=== PATIENT | female | born 1975 | race American Indian/Alaskan Native ===

== ENCOUNTER 2018-03-27 07:32 | Inpatient (IN) | payer SELFPAY ==
--- NOTE | 2018-03-27 04:27 | Emergency Department Report ---
ED Chest Pain HPI - General Chief Complaint: Chest Pain Stated Complaint: CHEST PAIN Time Seen by Provider: 03/27/18 04:27 Source: patient, EMS Mode of arrival: Stretcher Limitations: No Limitations - History of Present Illness Initial Comments: Patient present to the emergency room with chest pain which started suddenly this morning while she was at rest. She was given aspirin by EMS prior to arrival. Patient also says she took one sublingual nitroglycerin at home. Patient's chest pain is substernal and nonradiating. MD Complaint: chest pain -: Sudden, This morning Onset: during rest Pain Location: substernal Pain Radiation: none Severity: severe Severity scale (0 -10): 10 Quality: heaviness, pressure Consistency: constant Improves With: nothing Worsens With: nothing re: nausea. denies: vomting, diaphoresis, dyspnea Treatments Prior to Arrival: aspirin Aspirin use within the Past 7 Days: (0) No - Related Data On Oral Contraceptives: No Home Medications Medication Instructions Recorded Confirmed Last Taken cloNIDine [Catapres] 0.3 mg PO BID 02/20/13 02/20/13 03/31/13 23:00 metFORMIN [Glucophage] 500 mg PO BID 02/20/13 02/20/13 03/31/13 23:00 Previous Rx's Medication Instructions Recorded Last Taken Type Clindamycin [Clindamycin CAP] 150 mg PO QID #30 capsule 04/01/13 Unknown Rx Fluconazole [Diflucan] 150 mg PO QDAY #7 tablet 04/01/13 Unknown Rx HYDROcodone/APAP 5-325 [[place] 1 each PO Q6HR PRN #20 tablet 04/01/13 Unknown Rx 5/325 mg] Lisinopril/Hydrochlorothiazide 1 tab PO QDAY #30 tablet 04/01/13 Unknown Rx [Zestoretic 20-12.5 mg] Ciprofloxacin HCl [Ciprofloxacin 500 mg PO Q12H #20 tab 08/24/15 Unknown Rx TAB] Clotrimazole [Clotrimazole 3] 21 gm VG QDAY #1 cream.appl 08/24/15 Unknown Rx HYDROcodone/APAP 10-325 [[place] 1 each PO Q6HR PRN #15 tablet 08/24/15 Unknown Rx 10-325 mg TAB] cloNIDine [Catapres] 0.2 mg PO BID #60 tablet 03/23/16 Unknown Rx metFORMIN [Glucophage] 500 mg PO BID #60 tablet 08/24/15 Unknown Rx metroNIDAZOLE [Flagyl] 500 mg PO Q8HR #30 tablet 08/24/15 Unknown Rx Allergies Allergy/AdvReac Type Severity Reaction Status Date / Time ketorolac tromethamine Allergy Hives Verified 08/24/15 14:31 [From Toradol] Heart Score - HEART Score History: Highly suspicious EKG: Significant ST-depression Age: < 45 Risk factors: 1-2 risk factors Troponin: < normal limit HEART Score: 5 - Critical Actions Critical Actions: 4-6 pts:12-16.6% risk of adverse cardiac event. Should be admitted ED Review of Systems ROS: Stated complaint: CHEST PAIN Other details as noted in HPI Comment: All other systems reviewed and negative Constitutional: denies: chills, fever Eyes: denies: eye pain, eye discharge, vision change ENT: denies: ear pain, throat pain Respiratory: denies: cough, shortness of breath, wheezing Cardiovascular: chest pain. denies: palpitations Endocrine: no symptoms reported Gastrointestinal: denies: abdominal pain, nausea, diarrhea Genitourinary: denies: urgency, dysuria, discharge Musculoskeletal: denies: back pain, joint swelling, arthralgia Skin: denies: rash, lesions Neurological: denies: headache, weakness, paresthesias Psychiatric: denies: anxiety, depression Hematological/Lymphatic: denies: easy bleeding, easy bruising ED Past Medical Hx - Past Medical History Hx Hypertension: Yes Hx Diabetes: Yes Hx Kidney Stones: Yes Hx Asthma: Yes - Surgical History Hx Breast Surgery: Yes (breast reduction) - Social History Smoking Status: Current Every Day Smoker Substance Use Type: None - Medications Home Medications: Home Medications Medication Instructions Recorded Confirmed Last Taken Type cloNIDine [Catapres] 0.3 mg PO BID 02/20/13 02/20/13 03/31/13 23:00 History metFORMIN [Glucophage] 500 mg PO BID 02/20/13 02/20/13 03/31/13 23:00 History Clindamycin [Clindamycin CAP] 150 mg PO QID #30 capsule 04/01/13 Unknown Rx Fluconazole [Diflucan] 150 mg PO QDAY #7 tablet 04/01/13 Unknown Rx HYDROcodone/APAP 5-325 [[place] 1 each PO Q6HR PRN #20 tablet 04/01/13 Unknown Rx 5/325 mg] Lisinopril/Hydrochlorothiazide 1 tab PO QDAY #30 tablet 04/01/13 Unknown Rx [Zestoretic 20-12.5 mg] Ciprofloxacin HCl [Ciprofloxacin 500 mg PO Q12H #20 tab 08/24/15 Unknown Rx TAB] Clotrimazole [Clotrimazole 3] 21 gm VG QDAY #1 cream.appl 08/24/15 Unknown Rx HYDROcodone/APAP 10-325 [[place] 1 each PO Q6HR PRN #15 tablet 08/24/15 Unknown Rx 10-325 mg TAB] cloNIDine [Catapres] 0.2 mg PO BID #60 tablet 08/24/15 Unknown Rx metFORMIN [Glucophage] 500 mg PO BID #60 tablet 08/24/15 Unknown Rx metroNIDAZOLE [Flagyl] 500 mg PO Q8HR #30 tablet 08/24/15 Unknown Rx ED Physical Exam - General Limitations: No Limitations General appearance: alert, in distress - Head Head exam: Present: atraumatic, normocephalic - Eye Eye exam: Present: normal appearance, PERRL, EOMI Pupils: Present: normal accommodation - ENT ENT exam: Present: normal exam, mucous membranes moist - Neck Neck exam: Present: normal inspection, full ROM - Respiratory Respiratory exam: Present: normal lung sounds bilaterally. Absent: respiratory distress - Cardiovascular Cardiovascular Exam: Present: regular rate, normal rhythm. Absent: systolic murmur, diastolic murmur, rubs, gallop - GI/Abdominal GI/Abdominal exam: Present: soft, normal bowel sounds - Extremities Exam Extremities exam: Present: normal inspection - Back Exam Back exam: Present: normal inspection - Neurological Exam Neurological exam: Present: alert, oriented X3 - Psychiatric Psychiatric exam: Present: normal affect, normal mood - Skin Skin exam: Present: warm, dry, intact, normal color. Absent: rash ED Course Vital Signs 03/27/18 03/27/18 03/27/18 04:20 04:27 04:30 Temperature 98 F 98 F Pulse Rate 96 H 96 H 94 H Respiratory 15 11 L Rate Blood Pressure 190/96 205/102 Blood Pressure 190/96 [Right] O2 Sat by Pulse 20 L 99 100 Oximetry 03/27/18 04:45 Temperature Pulse Rate 94 H Respiratory 15 Rate Blood Pressure 161/87 Blood Pressure [Right] O2 Sat by Pulse 99 Oximetry - Consultations Consultation #1: 03/27/18 05:13 Consulted the child care aide on-call, Dr. Rebeka Xavier. He recommended calling a code STEMI and taking the patient to the cath. lab. for PCI immediately. Dr. Xavier also wants patient to be given 5000 units of heparin IV push now. 03/27/18 06:51 VEL score - Vel Score Age > 65: (0) No Aspirin use within the Past 7 Days: (0) No 3 or more CAD Risk Factors: (1) Yes 2 or more Angina events in past 24 hrs: (0) No Known CAD with more than 50% Stenosis: (0) No Elevated Cardiac Markers: (0) No ST Deviation Greater than 0.5mm: (1) Yes VEL Score: 2 ED Medical Decision Making - Lab Data Result diagrams: 03/27/18 04:35 03/27/18 04:35 Lab Results 03/27/18 03/27/18 03/27/18 Range/Units 04:35 04:35 04:35 WBC 19.2 H (4.5-11.0) K/mm3 RBC 4.65 (3.65-5.03) M/mm3 Hgb 13.6 (10.1-14.3) gm/dl Hct 42.4 (30.3-42.9) % MCV 91 (79-97) fl MCH 29 (28-32) pg MCHC 32 (30-34) % RDW 15.5 H (13.2-15.2) % Plt Count 238 (140-440) K/mm3 Lymph % (Auto) 14.6 (13.4-35.0) % [place] % (Auto) 3.7 (0.0-7.3) % Eos % (Auto) 0.2 (0.0-4.3) % Baso % (Auto) 0.7 (0.0-1.8) % Lymph # 2.8 (1.2-5.4) K/mm3 [place] # 0.7 (0.0-0.8) K/mm3 Eos # 0.0 (0.0-0.4) K/mm3 Baso # 0.1 (0.0-0.1) K/mm3 Seg Neutrophils % 80.8 H (40.0-70.0) % Seg Neutrophils # 15.5 H (1.8-7.7) K/mm3 PT 12.9 (12.2-14.9) Sec. INR 0.92 (0.87-1.13) Sodium 137 (137-145) mmol/L Potassium 4.8 (3.6-5.0) mmol/L Chloride 100.0 (98-107) mmol/L Carbon Dioxide 20 L (22-30) mmol/L Anion Gap 22 mmol/L BUN 20 H (7-17) mg/dL Creatinine 0.7 (0.7-1.2) mg/dL Estimated GFR > 60 ml/min BUN/Creatinine Ratio 29 % Glucose 159 H (65-100) mg/dL Calcium 9.5 (8.4-10.2) mg/dL Total Bilirubin (0.1-1.2) mg/dL Direct Bilirubin (0-0.2) mg/dL Indirect Bilirubin mg/dL AST (5-40) units/L ALT (7-56) units/L Alkaline Phosphatase (35-129) units/L Troponin T < 0.010 (0.00-0.029) ng/mL NT-Pro-B Natriuret Pep (0-450) pg/mL Total Protein (6.3-8.2) g/dL Albumin (3.9-5) g/dL Albumin/Globulin Ratio % 03/27/18 Range/Units 04:48 WBC (4.5-11.0) K/mm3 RBC (3.65-5.03) M/mm3 Hgb (10.1-14.3) gm/dl Hct (30.3-42.9) % MCV (79-97) fl MCH (28-32) pg MCHC (30-34) % RDW (13.2-15.2) % Plt Count (140-440) K/mm3 Lymph % (Auto) (13.4-35.0) % [place] % (Auto) (0.0-7.3) % Eos % (Auto) (0.0-4.3) % Baso % (Auto) (0.0-1.8) % Lymph # (1.2-5.4) K/mm3 [place] # (0.0-0.8) K/mm3 Eos # (0.0-0.4) K/mm3 Baso # (0.0-0.1) K/mm3 Seg Neutrophils % (40.0-70.0) % Seg Neutrophils # (1.8-7.7) K/mm3 PT (12.2-14.9) Sec. INR (0.87-1.13) Sodium (137-145) mmol/L Potassium (3.6-5.0) mmol/L Chloride (98-107) mmol/L Carbon Dioxide (22-30) mmol/L Anion Gap mmol/L BUN (7-17) mg/dL Creatinine (0.7-1.2) mg/dL Estimated GFR ml/min BUN/Creatinine Ratio % Glucose (65-100) mg/dL Calcium (8.4-10.2) mg/dL Total Bilirubin < 0.20 (0.1-1.2) mg/dL Direct Bilirubin < 0.2 (0-0.2) mg/dL Indirect Bilirubin 0.0 mg/dL AST 16 (5-40) units/L ALT 14 (7-56) units/L Alkaline Phosphatase 88 (35-129) units/L Troponin T (0.00-0.029) ng/mL NT-Pro-B Natriuret Pep 121.7 (0-450) pg/mL Total Protein 7.8 (6.3-8.2) g/dL Albumin 4.4 (3.9-5) g/dL Albumin/Globulin Ratio 1.3 % - EKG Data -: EKG Interpreted by [facility] EKG shows normal: sinus rhythm Rate: normal (92) - EKG Data When compared to previous EKG there are: changes noted 03/27/18 04:59 ST elevation in the Inferior leads. First degree AV block. - Radiology Data Radiology results: report reviewed, image reviewed CXR is negative. - Medical Decision Making Inferior wall M.I. Critical Care Time: Yes Critical care time in (mins) excluding proc time.: 40 Critical care attestation.: If time is entered above; I have spent that time in minutes in the direct care of this critically ill patient, excluding procedure time. ED Disposition Clinical Impression: STEMI (ST elevation myocardial infarction) Qualifiers: Involved coronary artery: unspecified coronary artery Qualified Code(s): I21.3 - ST elevation (STEMI) myocardial infarction of unspecified site Chest pain Qualifiers: Chest pain type: chest pain due to myocardial ischemia Ischemic chest pain type : unstable angina pectoris Qualified Code(s): I20.0 - Unstable angina Hypertension Qualifiers: Hypertension type: unspecified Qualified Code(s): I10 - Essential (primary) hypertension Disposition: OP ADMIT IP TO THIS HOSP Is pt being admited?: Yes Does the pt Need Aspirin: Yes Condition: Stable Instructions: Chest Pain (ED), Hypertension (ED) Referrals: PRIMARY CARE, [Primary Care Provider] - 3-5 Days Forms: Work/School Release Form(ED) Time of Disposition: 05:04
[2018-03-27 05:15] LABS: INR 0.92 (0.87-1.13)
--- NOTE | 2018-03-27 05:21 | XRay Report ---
FINAL REPORT PROCEDURE: XR CHEST 1V AP TECHNIQUE: Chest radiograph anteroposterior view. CPT 99254 HISTORY: chest pain COMPARISON: No prior studies are available for comparison. FINDINGS: Heart: Normal. Mediastinum/Vessels: Normal. Lungs/Pleural space: Normal. Bony thorax: No acute osseous abnormality. Life support devices: None. IMPRESSION: No acute cardiopulmonary abnormality.
[2018-03-27 05:32] LABS: Alanine Aminotransferase 14 units/L (7-56); Albumin 4.4 g/dL (3.9-5)
[2018-03-27 05:33] LABS: BUN/Creatinine Ratio 29; Blood Urea Nitrogen 20 mg/dL (7-17); Calcium 9.5 mg/dL (8.4-10.2); Hemolysis Index 33
[2018-03-27] MEDS: HEPARIN 10,000 UNITS/10 ML ONE ×3 (05:36→06:21)
[2018-03-27 05:47] LABS: Bilirubin,Direct < 0.2 mg/dL (0-0.2)
[2018-03-27 06:04] LABS: Hematocrit 42.4 % (30.3-42.9); Hemoglobin 13.6 gm/dl (10.1-14.3); Mean Corpuscular HGB Conc 32 % (30-34); Mean Corpuscular Hemoglobin 29 pg (28-32); Mean Corpuscular Volume 91 fl (79-97); Red Blood Count 4.65 M/mm3 (3.65-5.03); Red Cell Distribution Width 15.5 % (13.2-15.2)
[2018-03-27 06:16] LABS: Basophils % (Auto) 0.7 % (0.0-1.8); Eosinophils % (Auto) 0.2 % (0.0-4.3); Lymphocytes # (Auto) 2.8 K/mm3 (1.2-5.4); Lymphocytes % (Auto) 14.6 % (13.4-35.0); Monocytes # (Auto) 0.7 K/mm3 (0.0-0.8); Monocytes % (Auto) 3.7 % (0.0-7.3); Platelet Count 238 K/mm3 (140-440)
[2018-03-27 06:17] LABS: Basophils # (Auto) 0.1 K/mm3 (0.0-0.1)
--- NOTE | 2018-03-27 06:29 | History and Physical Report ---
History of Present Illness Date of examination: 03/27/18 Date of admission: Today Chief complaint: Chest pain History of present illness: Patient is a 42-year-old with a history of hypertension, family history of coronary artery disease and tobacco abuse. 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 She was sitting and watching TV at around 4:00 when she noticed severe pain in her chest. EMT was called and patient was brought into the emergency room. EKG at first medical contact did not show any acute inferior ST elevation MT. However EKG in the ER revealed subtle inferior ST elevation MT. Code STEMI was activated and the patient was emergently taken to the [facility]. She underwent successful PCI of critical stenosis of the right coronary artery. She is currently stable and subsequently being admitted to the ICU Past History Past Medical History: hypertension Social history: smoking Family history: CAD Medications and Allergies Allergies Allergy/AdvReac Type Severity Reaction Status Date / Time ketorolac tromethamine Allergy Hives Verified 08/24/15 14:31 [From Toradol] Home Medications Medication Instructions Recorded Confirmed Last Taken Type cloNIDine [Catapres] 0.3 mg PO BID 02/20/13 02/20/13 03/31/13 23:00 History metFORMIN [Glucophage] 500 mg PO BID 02/20/13 02/20/13 03/31/13 23:00 History Clindamycin [Clindamycin CAP] 150 mg PO QID #30 capsule 04/01/13 Unknown Rx Fluconazole [Diflucan] 150 mg PO QDAY #7 tablet 04/01/13 Unknown Rx HYDROcodone/APAP 5-325 [[place] 1 each PO Q6HR PRN #20 tablet 04/01/13 Unknown Rx 5/325 mg] Lisinopril/Hydrochlorothiazide 1 tab PO QDAY #30 tablet 04/01/13 Unknown Rx [Zestoretic 20-12.5 mg] Ciprofloxacin HCl [Ciprofloxacin 500 mg PO Q12H #20 tab 08/24/15 Unknown Rx TAB] Clotrimazole [Clotrimazole 3] 21 gm VG QDAY #1 cream.appl 08/24/15 Unknown Rx HYDROcodone/APAP 10-325 [[place] 1 each PO Q6HR PRN #15 tablet 08/24/15 Unknown Rx 10-325 mg TAB] cloNIDine [Catapres] 0.2 mg PO BID #60 tablet 08/24/15 Unknown Rx metFORMIN [Glucophage] 500 mg PO BID #60 tablet 08/24/15 Unknown Rx metroNIDAZOLE [Flagyl] 500 mg PO Q8HR #30 tablet 08/24/15 Unknown Rx Active Meds: Active Medications Aspirin (Baby Aspirin) 81 mg PO QDAY PIOTR Carvedilol (Coreg) 3.125 mg PO BID [facility] Sodium Chloride (Nacl 0.9% 1000 Ml) 1,000 mls @ 125 mls/hr IV DIRECT PIOTR Morphine Sulfate (Morphine) 2 mg IV Q5MIN PRN PRN Reason: Chest Pain unrelieved by NTG Ticagrelor (Brilinta) 90 mg PO BID [facility] Review of Systems All systems: negative (as mentioned in H&P) Physical Examination Vital Signs Temp Pulse BP Pulse Ox 98 F 96 H 190/96 20 L 03/27/18 04:20 03/27/18 04:20 03/27/18 04:20 03/27/18 04:20 General appearance: no acute distress HEENT: Positive: Normocephaly Neck: Positive: neck supple Cardiac: Positive: Reg Rate and Rhythm Lungs: Positive: Normal Exam Neuro: Positive: Grossly Intact Abdomen: Positive: Unremarkable Female genitourinary: deferred Extremities: Present: normal Results 03/27/18 04:35 03/27/18 04:35 Cardiac Enzymes 03/27/18 Range/Units 04:48 AST 16 (5-40) units/L Coagulation 03/27/18 Range/Units 04:35 PT 12.9 (12.2-14.9) Sec. INR 0.92 (0.87-1.13) CBC 03/27/18 Range/Units 04:35 WBC 19.2 H (4.5-11.0) K/mm3 RBC 4.65 (3.65-5.03) M/mm3 Hgb 13.6 (10.1-14.3) gm/dl Hct 42.4 (30.3-42.9) % Plt Count 238 (140-440) K/mm3 Lymph # 2.8 (1.2-5.4) K/mm3 [place] # 0.7 (0.0-0.8) K/mm3 Eos # 0.0 (0.0-0.4) K/mm3 Baso # 0.1 (0.0-0.1) K/mm3 Comprehensive Metabolic Panel 03/27/18 03/27/18 Range/Units 04:35 04:48 Sodium 137 (137-145) mmol/L Potassium 4.8 (3.6-5.0) mmol/L Chloride 100.0 (98-107) mmol/L Carbon Dioxide 20 L (22-30) mmol/L BUN 20 H (7-17) mg/dL Creatinine 0.7 (0.7-1.2) mg/dL Glucose 159 H (65-100) mg/dL Calcium 9.5 (8.4-10.2) mg/dL Direct Bilirubin < 0.2 (0-0.2) mg/dL Indirect Bilirubin 0.0 mg/dL AST 16 (5-40) units/L ALT 14 (7-56) units/L Alkaline Phosphatase 88 (35-129) units/L Total Protein 7.8 (6.3-8.2) g/dL Albumin 4.4 (3.9-5) g/dL EKG interpretations - Telemetry EKG Rhythm: Sinus Rhythm (subtle ST elevation in lead 3 and aVF.) Assessment and Plan Impression Acute inferior ST elevation MT CAD status post PCI of the right coronary artery with drug-eluting stents Hypertension Diabetes mellitus. Plan Routine post-MT care DAPT therapy for one year probably more Titrate nitro drip and eventually been of nitro drip Statins Beta blockers Regarding adjuvant pharmacotherapy post-MT Smoking cessation Cardiac rehabilitation
[2018-03-27 06:54] LABS: Partial Thromboplastin Time 20.1 Sec. (24.2-36.6)
[~2018-03-27 07:32] MED LIST: ALUM-MAG HYDROX-SIMETH 200-200-20MG/5ML ONE; ASPIRIN PO ONE; BRILINTA ONE; CALAN ONE; HEPARIN 10,000 UNITS/10 ML IV ONE; HEPARIN 10,000 UNITS/10 ML ONE; HEPARIN IV ONE; HEPARIN/NS 5000 UNIT/500ML(CATH LAB) 1,000 ML IR ONE; HEPARIN/NS 5000 UNIT/500ML(CATH LAB) 500 ML IR ONE; LOPRESSOR IV ONE; MORPHINE IV PRN; NACL 0.9% 1000 ML 1,000 ML IV SCH; NITROGLYCERIN SYRINGE 3 ML ONE; NITROSTAT SL ONE; PROTONIX PO ONE; SUBLIMAZE IV ONE; TRIDIL DRIP 50MG/250ML 50 MG/250 ML BOTTLE IV SCH; TRIDIL DRIP 50MG/250ML 50 MG/250 ML BOTTLE ONE; XYLOCAINE 2% INFILTRATI ONE; ZOFRAN IV ONE; ZOFRAN ONE
[2018-03-27] MEDS: BABY ASPIRIN PO SCH (10:03)
[2018-03-27] MEDS: COREG PO SCH ×2 (10:03→21:51)
--- NOTE | 2018-03-27 11:25 | Consultation ---
History of Present Illness - Reason for Consult Consult date: 03/27/18 STEMI, post PCI Requesting physician: DANNIE DOUGLASS - History of Present Illness 42 y/o female admitted with chest pain. Found to have STEMI. Taken to [facility] this am and had 2 stents to RCA. Stable, in ICU on nitro drip and chest pain free. Past History Past Medical History: hypertension Social history: smoking Family history: CAD Medications and Allergies Allergies Allergy/AdvReac Type Severity Reaction Status Date / Time ketorolac tromethamine Allergy Hives Verified 08/24/15 14:31 [From Toradol] Home Medications Medication Instructions Recorded Confirmed Last Taken Type HYDROcodone/APAP 10-325 [[place] 1 each PO Q6HR PRN #15 tablet 08/24/15 03/27/18 03/24/18 Rx 10-325 mg TAB] 1 tab cloNIDine [Catapres] 0.2 mg PO BID #60 tablet 08/24/15 03/27/18 03/27/18 00:01 Rx .2mg metFORMIN [Glucophage] 500 mg PO BID #60 tablet 08/24/15 03/27/18 03/26/18 Rx 500mg amLODIPine [Norvasc] 5 mg PO DAILY 03/27/18 03/27/18 03/26/18 History 5mg Active Meds: Active Medications Aspirin (Baby Aspirin) 81 mg PO QDAY [facility] Last Admin: 03/27/18 10:03 Dose: 81 mg Atorvastatin Calcium (Lipitor) 80 mg PO QHS [facility] Carvedilol (Coreg) 3.125 mg PO BID [facility] Last Admin: 03/27/18 10:03 Dose: 3.125 mg Sodium Chloride (Nacl 0.9% 1000 Ml) 1,000 mls @ 125 mls/hr IV DIRECT PIOTR Nitroglycerin/Dextrose (Tridil Drip 50mg/250ml) 50 mg in 250 mls @ 6 mls/hr IV TITR PIOTR; Protocol Last Admin: 03/27/18 09:00 Dose: 20 mcg/min, 6 mls/hr Insulin Human Regular (Humulin R) 0 units SUB-Q ACHS PIOTR; Protocol Morphine Sulfate (Morphine) 2 mg IV Q5MIN PRN PRN Reason: Chest Pain unrelieved by NTG Ticagrelor (Brilinta) 90 mg PO BID [facility] Review of Systems All systems: negative Exam - Constitutional Vitals: Temp Pulse Resp BP Pulse Ox 97.9 F 94 H 16 154/89 98 03/27/18 06:49 03/27/18 10:03 03/27/18 07:45 03/27/18 10:03 03/27/18 09:58 General appearance: Present: no acute distress, well-nourished, obese - EENT Eyes: Present: PERRL, EOM intact ENT: hearing intact - Neck Neck: Present: supple, normal ROM - Respiratory Respiratory effort: normal Respiratory: bilateral: CTA - Cardiovascular Rhythm: regular Heart Sounds: Present: S1 & S2 - Extremities Extremities: no ischemia - Abdominal General gastrointestinal: Present: soft, non-tender, normal bowel sounds - Rectal Rectal Exam: deferred - Integumentary Integumentary: Present: clear, warm, dry - Neurologic Neurologic: CNII-XII intact Results - Labs CBC & Chem 7: 03/27/18 04:35 03/27/18 04:35 Labs: Abnormal lab results 03/27/18 03/27/18 03/27/18 Range/Units 04:35 04:35 04:35 WBC 19.2 H (4.5-11.0) K/mm3 RDW 15.5 H (13.2-15.2) % Seg Neutrophils % 80.8 H (40.0-70.0) % Seg Neutrophils # 15.5 H (1.8-7.7) K/mm3 APTT 20.1 L (24.2-36.6) Sec. Carbon Dioxide 20 L (22-30) mmol/L BUN 20 H (7-17) mg/dL Glucose 159 H (65-100) mg/dL POC Glucose (70-105) 03/27/18 Range/Units 08:57 WBC (4.5-11.0) K/mm3 RDW (13.2-15.2) % Seg Neutrophils % (40.0-70.0) % Seg Neutrophils # (1.8-7.7) K/mm3 APTT (24.2-36.6) Sec. Carbon Dioxide (22-30) mmol/L BUN (7-17) mg/dL Glucose (65-100) mg/dL POC Glucose 198 H (70-105) - Imaging and Cardiology Chest x-ray: image reviewed (clear) Assessment and Plan 42 y/o woman with chest pain, found to have CAD with PCI to RCA 1. Follow cardiology recs 2. make sure patient is chest pain free 3. ASA, statin beta pablo and lipid panel in am. Will likely get echo as well if not already done.
[2018-03-27] MEDS: HumuLIN R SUB-Q SCH ×3 (12:57→22:00)
[2018-03-27] MEDS ORDERED: SODIUM CHLORIDE FLUSH SYRINGE 10 ML IV ONE (14:36)
[2018-03-27] MEDS ORDERED: HEPARIN/ 0.45% NACL-25,000 UNIT/500 ML ONE (14:36)
[2018-03-27] MEDS ORDERED: HEPARIN 10,000 UNITS/10 ML ONE (14:36)
[2018-03-27] MEDS: NORVASC PO SCH (16:15)
--- NOTE | 2018-03-27 16:21 | Event Note ---
Date: 03/27/18 Patient looks and feels well, following primary angioplasty and stenting of the right coronary artery for acute inferior STEMI. We will hold metformin for 48 hours following contrast angiography, use insulin sliding scale for diabetes management. Will also optimize hypertensive therapy. Anticipated discharge in 24-48 hours if clinical course remains stable and uncomplicated.
[2018-03-27] MEDS: CATAPRES PO PRN (20:26)
[2018-03-27] MEDS: BRILINTA PO SCH (21:52)
--- NOTE | 2018-03-28 02:23 | XRay Report ---
FINAL REPORT PROCEDURE: XR CHEST 1V AP TECHNIQUE: Chest radiograph anteroposterior view. CPT 14369 HISTORY: post pci COMPARISON: 03/27/2018 FINDINGS: Heart: Normal. Mediastinum/Vessels: Normal. Lungs/Pleural space: Normal. Bony thorax: No acute osseous abnormality. Life support devices: None. IMPRESSION: No acute cardiopulmonary abnormality.
[2018-03-28] MEDS: CATAPRES PO PRN (02:31)
[2018-03-28 05:05] LABS: Creatine Kinase MB 24.5 ng/mL (0.0-4.0)
[2018-03-28 05:09] LABS: Hematocrit 34.6 % (30.3-42.9); Mean Corpuscular HGB Conc 32 % (30-34); Mean Corpuscular Hemoglobin 30 pg (28-32); Mean Corpuscular Volume 93 fl (79-97); Platelet Count 302 K/mm3 (140-440); Red Blood Count 3.71 M/mm3 (3.65-5.03); Red Cell Distribution Width 15.6 % (13.2-15.2)
[2018-03-28 05:10] LABS: BUN/Creatinine Ratio 26; Blood Urea Nitrogen 18 mg/dL (7-17); Calcium 8.9 mg/dL (8.4-10.2); Hemolysis Index 82
[2018-03-28 05:26] LABS: Basophils # (Auto) 0.1 K/mm3 (0.0-0.1); Basophils % (Auto) 0.5 % (0.0-1.8); Eosinophils # (Auto) 0.1 K/mm3 (0.0-0.4); Eosinophils % (Auto) 0.8 % (0.0-4.3); Lymphocytes # (Auto) 3.2 K/mm3 (1.2-5.4); Lymphocytes % (Auto) 29.1 % (13.4-35.0); Monocytes # (Auto) 0.9 K/mm3 (0.0-0.8); Monocytes % (Auto) 7.7 % (0.0-7.3)
[2018-03-28 05:45] LABS: LDL Cholesterol,Direct 4 mg/dL (50-130)
[2018-03-28 06:06] LABS: Chol/HDL Ratio 5.83 %; HDL Cholesterol 31 mg/dL (40-59)
[2018-03-28] MEDS: HumuLIN R SUB-Q SCH ×2 (09:02→14:53)
[2018-03-28] MEDS: NORVASC PO SCH (09:03)
[2018-03-28] MEDS: BRILINTA PO SCH (09:04)
[2018-03-28] MEDS: BABY ASPIRIN PO SCH (09:05)
[2018-03-28] MEDS: COREG PO SCH (09:05)
--- NOTE | 2018-03-28 09:18 | Cardiac Catherization Report ---
CORONARY ANGIOGRAM REPORT PROCEDURES PERFORMED: 1. Selective left and right coronary angiogram. 2. Left ventriculogram. 3. Successful percutaneous intervention of the right coronary artery in the setting of inferior ST elevation myocardial infarction. DEWAXER: Blaine Xavier MD. PROCEDURE DETAILS: 1. The patient was prepped and draped in a sterile fashion after informed consent. 2. The right groin was anesthetized using local Lidocaine infiltration. 3. The right femoral artery was entered using the Seldinger technique, followed by the placement of a 6-[place] sheath. 4. Selective left and right coronary angiography was performed using 6-[place] Hernandez catheters. Angiograms were done in multiple projections. 5. Selective left ventricular angiography was done using a 6-[place] pigtail catheter. Left ventricular angiography was performed in the right anterior oblique projection. 6. The catheters were withdrawn, the sheath removed, and hemostasis was achieved. 7. The patient was transferred to the post cardiac catheterization unit in stable condition. There were no complications, equipment malfunction, or technical difficulties. FINDINGS: HEMODYNAMICS: 1. AO is 149/100. LV is 157/20, LVEDP is 20. 2. Left ventriculogram done in 30-degree ADLER projection was suboptimal. There was evidence of inferior hypokinesis, EF around 50%-55%. ANGIOGRAM DETAILS: 1. Left main is angiographically normal. 2. LAD is a medium caliber vessel. There is a mid 20%-30% stenosis. 3. The circumflex is small to medium caliber vessel. The mid distal circumflex has moderate to diffuse disease and a very small caliber vessel. 4. The RCA is a very small caliber vessel. There is a proximal 90% stenosis followed by greater than 90%-95% stenosis of the mid distal right coronary artery. IMPRESSION: 1. Significant coronary artery disease involving 90% mid RCA and greater than 90% stenosis of the mid distal RCA. 5. Diffuse disease of the small terminal circumflex. 3. Borderline LV systolic function with inferior hypokinesis. PLAN: Proceed with PCI of the right coronary artery in view of the inferior ST elevation OR. PROCEDURE: Intravenous heparin was used to maintain therapeutic ACT. AL1 guide catheter was used to engage the right coronary artery. A BMW wire was used as a standard guidewire. After initial pre-dilatation, a 2.25 x 26 mm stent was deployed in the mid distal RCA and a 2.5 x 18 mm Resolute drug-eluting stent was deployed in the mid right coronary artery. The entire stented segments were post-dilated with a 2.5 balloon to nominal pressure. A subsequent angiogram showed excellent results with no residual stenosis, dissection or thrombosis. The patient tolerated the procedure and was chest pain free at the end of the procedure. IMPRESSION: Status post successful PEG intervention of the mid and distal right coronary artery with the deployment of a 2.25 x 26 mm stent distally and a 2.5 x 18 mm stent in the mid portion. PLAN: 1. Aspirin for life. 2. Brilinta for 1 year, preferably more. 3. Routine adjuvant pharmacotherapy post-PCI. 4. Routine radial artery sheath care. 5. Aggressive medical therapy. [facility]# [id number] CRISTO/GABRIEL
--- NOTE | 2018-03-28 09:59 | Discharge Summary ---
Providers - Providers Date of Admission: 03/27/18 08:11 Date of discharge: 03/28/18 Attending physician: DANNIE DOUGLASS 03/27/18 Consult to Cardiac Rehabilitation [CONS] Routine Reason For Exam: post pci 03/27/18 05:15 Consult to Physician [CONS] Stat Comment: Consulting Provider: DANNIE DOUGLASS Physician Instructions: Reason For Exam: STEMI 03/27/18 10:13 Consult to Physician [CONS] Routine Comment: Consulting Provider: ISAURO NOGUERA Physician Instructions: Reason For Exam: critical care Primary care physician: [employer] Hospitalization Condition: Good Hospital course: This is a 42yr old woman with a history of Diabetes, Hypertension who presented with an acute ST elevation myocardial infarction of the right coronary artery. The patient underwent emergency cardiac catheterizaton with primary angioplasty and stenting of the mid and distal right coronary artery using Resolute drug eluting stents. A small caliber mid distal circumflex contained diffuse moderate coronary disease, recommended for medical therapy. Left ventricular systolic function 55-60%. Today, the patient looks and feels well. She denies further chest pain and has maintained a stable sinus rhythm. Patient will discharge home on medical therapy to include DAPT with Brilinta and aspirin therapy. Patient advised to follow up with [facility]. as scheduled on Apr.09. Disposition: DC-01 TO HOME OR SELFCARE Core Measure Documentation - Palliative Care Palliative Care/ Comfort Measures: Not Applicable - Core Measures Any of the following diagnoses?: acute AR - Acute AR Discharge Requirements Aspirin at discharge: Yes ABIGAIL/ARB for LVSD if EF <40%: Not Applicable Beta pablo at discharge: Yes Statin for LDL = or >100 mg/dl on DC: Yes Exam - Constitutional Vitals: Temp Pulse Resp BP Pulse Ox 98.8 F 90 7 L 160/85 98 03/28/18 04:00 03/28/18 09:05 03/28/18 06:00 03/28/18 09:05 03/28/18 06:00 General appearance: Present: no acute distress - EENT Eyes: Present: PERRL - Neck Neck: Present: normal ROM - Respiratory Respiratory effort: normal - Cardiovascular Rhythm: regular Heart Sounds: Present: S1 & S2 - Psychiatric Psychiatric: appropriate mood/affect Plan Activity: advance as tolerated Diet: low fat, low cholesterol, low salt, diabetic Wound: keep clean and dry Additional Instructions: Resume metformin on 03/29 as previously prescribed. Follow up with: PRIMARY CAREMD [Primary Care Provider] - 3-5 Days DANNIE DOUGLASS MD [Staff Physician] - 7 Days Forms: Work/School Release Form(ED) Prescriptions: AtorvaSTATin [Lipitor] 80 mg PO QHS #30 tablet Aspirin [Aspirin BABY CHEW TAB] 81 mg PO QDAY #30 tab.chew Carvedilol [Coreg] 3.125 mg PO BID #60 tablet Ticagrelor [Brilinta] 90 mg PO BID #60 tablet
[2018-03-28] MEDS ORDERED: CATAPRES PO SCH (11:00)
--- NOTE | 2018-03-28 11:37 | Progress Note ---
Assessment and Plan 42 y/o woman with chest pain, found to have CAD with PCI to RCA 1. Per cardiology for discharge today. 2. No pulmonary issues to be addressed. Subjective Date of service: 03/28/18 Interval history: Chest pain free, stable, off drips. Objective - Constitutional Vitals: Vital Signs - 12hr 03/27/18 03/27/18 03/27/18 23:41 23:44 23:51 Temperature Pulse Rate 89 87 96 H Respiratory 20 21 23 Rate Blood Pressure 159/77 146/75 144/73 O2 Sat by Pulse 97 98 98 Oximetry 03/28/18 03/28/18 03/28/18 00:00 00:07 00:11 Temperature 98.6 F Pulse Rate 88 87 88 Respiratory 25 H 23 22 Rate Blood Pressure 158/79 158/79 158/79 O2 Sat by Pulse 97 96 97 Oximetry 03/28/18 03/28/18 03/28/18 00:21 00:30 00:41 Temperature Pulse Rate 88 93 H 86 Respiratory 23 23 23 Rate Blood Pressure 146/78 147/79 147/79 O2 Sat by Pulse 98 98 97 Oximetry 03/28/18 03/28/18 03/28/18 00:51 01:00 01:10 Temperature Pulse Rate 88 87 89 Respiratory 19 23 22 Rate Blood Pressure 147/80 161/78 161/78 O2 Sat by Pulse 97 97 96 Oximetry 03/28/18 03/28/18 03/28/18 01:20 01:30 01:40 Temperature Pulse Rate 94 H 95 H 93 H Respiratory 23 24 22 Rate Blood Pressure 160/79 145/75 145/75 O2 Sat by Pulse 98 98 98 Oximetry 03/28/18 03/28/18 03/28/18 01:50 02:00 02:10 Temperature Pulse Rate 90 101 H Respiratory 18 17 20 Rate Blood Pressure 150/87 150/87 161/93 O2 Sat by Pulse 98 99 Oximetry 03/28/18 03/28/18 03/28/18 02:20 02:30 02:31 Temperature Pulse Rate 100 H 89 99 H Respiratory 21 12 Rate Blood Pressure 176/109 166/94 179/99 O2 Sat by Pulse 98 98 Oximetry 03/28/18 03/28/18 03/28/18 02:40 02:50 03:00 Temperature Pulse Rate 90 91 H 91 H Respiratory 22 21 19 Rate Blood Pressure 166/94 150/87 164/95 O2 Sat by Pulse 97 96 97 Oximetry 03/28/18 03/28/18 03/28/18 03:10 03:20 03:30 Temperature Pulse Rate 90 99 H 89 Respiratory 23 22 22 Rate Blood Pressure 164/95 168/99 156/92 O2 Sat by Pulse 98 97 97 Oximetry 03/28/18 03/28/18 03/28/18 03:40 03:50 04:00 Temperature 98.8 F Pulse Rate 89 88 87 Respiratory 24 23 20 Rate Blood Pressure 156/92 157/91 154/92 O2 Sat by Pulse 97 98 97 Oximetry 03/28/18 03/28/18 03/28/18 04:11 04:21 04:30 Temperature Pulse Rate 91 H 88 90 Respiratory 23 28 H 17 Rate Blood Pressure 154/92 156/96 151/91 O2 Sat by Pulse 96 97 100 Oximetry 03/28/18 03/28/18 03/28/18 04:41 04:51 05:00 Temperature Pulse Rate 88 85 86 Respiratory 21 19 20 Rate Blood Pressure 151/91 145/90 153/95 O2 Sat by Pulse 98 99 98 Oximetry 03/28/18 03/28/18 03/28/18 05:11 05:21 05:30 Temperature Pulse Rate 86 89 91 H Respiratory 20 18 16 Rate Blood Pressure 153/95 157/85 160/85 O2 Sat by Pulse 97 98 100 Oximetry 03/28/18 03/28/18 03/28/18 05:40 05:51 06:00 Temperature Pulse Rate 86 78 85 Respiratory 19 22 7 L Rate Blood Pressure 160/85 166/75 159/97 O2 Sat by Pulse 95 94 98 Oximetry 03/28/18 03/28/18 09:03 09:05 Temperature Pulse Rate 90 90 Respiratory Rate Blood Pressure 160/85 160/85 O2 Sat by Pulse Oximetry - Labs CBC & Chem 7: 03/28/18 04:12 03/28/18 04:12 Labs: Abnormal lab results 03/27/18 03/27/18 03/27/18 Range/Units 05:56 06:17 11:39 WBC (4.5-11.0) K/mm3 RDW (13.2-15.2) % [place] % (Auto) (0.0-7.3) % [place] # (0.0-0.8) K/mm3 Activated Clotting Time 246 H 230 H (74-137) Sodium (137-145) mmol/L Chloride (98-107) mmol/L Carbon Dioxide (22-30) mmol/L BUN (7-17) mg/dL Glucose (65-100) mg/dL POC Glucose 152 H (70-105) Total Creatine Kinase (30-135) units/L CK-MB (CK-2) (0.0-4.0) ng/mL Troponin T (0.00-0.029) ng/mL LDL Cholesterol Direct (50-130) mg/dL HDL Cholesterol (40-59) mg/dL 03/27/18 03/27/18 03/28/18 Range/Units 16:16 21:44 04:12 WBC 11.1 H (4.5-11.0) K/mm3 RDW 15.6 H (13.2-15.2) % [place] % (Auto) 7.7 H (0.0-7.3) % [place] # 0.9 H (0.0-0.8) K/mm3 Activated Clotting Time (74-137) Sodium (137-145) mmol/L Chloride (98-107) mmol/L Carbon Dioxide (22-30) mmol/L BUN (7-17) mg/dL Glucose (65-100) mg/dL POC Glucose 163 H 148 H (70-105) Total Creatine Kinase (30-135) units/L CK-MB (CK-2) (0.0-4.0) ng/mL Troponin T (0.00-0.029) ng/mL LDL Cholesterol Direct (50-130) mg/dL HDL Cholesterol (40-59) mg/dL 03/28/18 03/28/18 Range/Units 04:12 08:46 WBC (4.5-11.0) K/mm3 RDW (13.2-15.2) % [place] % (Auto) (0.0-7.3) % [place] # (0.0-0.8) K/mm3 Activated Clotting Time (74-137) Sodium 133 L (137-145) mmol/L Chloride 97.8 L (98-107) mmol/L Carbon Dioxide 17 L (22-30) mmol/L BUN 18 H (7-17) mg/dL Glucose 168 H (65-100) mg/dL POC Glucose 185 H (70-105) Total Creatine Kinase 735 H (30-135) units/L CK-MB (CK-2) 24.5 H (0.0-4.0) ng/mL Troponin T 0.682 H* D (0.00-0.029) ng/mL LDL Cholesterol Direct 4 L (50-130) mg/dL HDL Cholesterol 31 L (40-59) mg/dL
[2018-03-28 13:59] VITALS: BP 155/88
== END 2018-03-28 14:30 | disposition home or self-care (01) | DRG 247 ==
LOC: CATH 07:32 → CC1 08:11
PROVIDERS: ADMIT Internal Medicine Cardiovascular Disease; ATTEND Internal Medicine Cardiovascular Disease
PROC: 4A023N7 Measurement of Cardiac Sampling and Pressure, Left Heart, Percutaneous Approach (ICD-10-PCS; principal; 2018-03-27)
PROC: 027035Z Dilation of Coronary Artery, One Artery with Two Drug-eluting Intraluminal Devices, Percutaneous Approach (ICD-10-PCS; 2018-03-27)
PROC: B2111ZZ Fluoroscopy of Multiple Coronary Arteries using Low Osmolar Contrast (ICD-10-PCS; 2018-03-27)
PROC: B2151ZZ Fluoroscopy of Left Heart using Low Osmolar Contrast (ICD-10-PCS; 2018-03-27)
DX: I21.19 ST elevation (STEMI) myocardial infarction involving other coronary artery of inferior wall (principal); E11.9 Type 2 diabetes mellitus without complications; I10 Essential (primary) hypertension; J45.909 Unspecified asthma, uncomplicated; I25.10 Atherosclerotic heart disease of native coronary artery without angina pectoris; F17.200 Nicotine dependence, unspecified, uncomplicated; Z87.442 Personal history of urinary calculi; Z79.899 Other long term (current) drug therapy; Z82.49 Family history of ischemic heart disease and other diseases of the circulatory system; Z71.6 Tobacco abuse counseling
CPT/HCPCS: 36415; 71045; 80048; 80061; 80074; 82550; 82553; 82962; 83880; 84484; 85025; 85347; 85610; 85730; 92941; 93005; 93010; 93306; 93458; 94760; 96374; 99291; A9270-GY; C1725; C1769; C1874; C1887; C1894; C9606; J1644; J1815; J2270; J2405; J3010; Q9967